=== PATIENT | male | born 1960 | race Two or more races ===

== ENCOUNTER 2018-12-04 12:46 | Emergency (ER) | payer OTHER ==
[~2018-12-04] VITALS: Ht 172.7 cm; Wt 70.8 kg
--- NOTE | 2018-12-04 14:16 | NUR ---
BIB COUSIN C/O FACIAL PAIN S/P FALL FROM SCOOTER, -KO. PT AAOX4, VSS. DENIES CP, SOB, DIZZINESS, N/V AT THIS TIME. PT SEEN & EVAL'D BY CITLALY GRIFFIN & WILL CONT TO MONITOR.
[2018-12-04] MEDS ORDERED: HYDROCODONE/APAP 5/325MG 1 EACH TABLET PO ONE (14:30)
[2018-12-04] MEDS ORDERED: TDAP [DIPH/PERTUSSIS/TET] 0.5 ML VIAL IM ONE ×2 (14:30→15:01)
--- NOTE | 2018-12-04 14:44 | NUR ---
PT TO RADIOLOGY DEPT VIA NITESH.
[2018-12-04] MEDS ORDERED: HYDROCODONE/APAP 5/325MG 1 EACH TABLET ONE (15:01)
[2018-12-04 16:23] VITALS: BP 138/84
--- NOTE | 2018-12-04 16:24 | NUR ---
Patient discharged to home in stable condition. Written and verbal after care instructions given. Patient verbalizes understanding of instruction.
== END 2018-12-04 16:25 | disposition home or self-care (01) ==
LOC: ER 12:51
DX: S01.512A Laceration without foreign body of oral cavity, initial encounter (principal); S01.511A Laceration without foreign body of lip, initial encounter; S63.592A Other specified sprain of left wrist, initial encounter; S09.8XXA Other specified injuries of head, initial encounter; F41.9 Anxiety disorder, unspecified; W05.1XXA Fall from non-moving nonmotorized scooter, initial encounter; Y93.89 Activity, other specified; Y92.89 Other specified places as the place of occurrence of the external cause; Y99.8 Other external cause status
CPT/HCPCS: 70486-TC; 73110; 90715

== ENCOUNTER 2020-11-07 15:53 | Emergency (ER) | payer OTHER ==
[~2020-11-07] VITALS: Ht 172.7 cm; Wt 79.4 kg
[2020-11-07 16:06] VITALS: BP 141/68
[2020-11-07] MEDS ORDERED: FLUORESCEIN SODIUM OPHTH 1 EA STRIP ONE (16:17)
[2020-11-07] MEDS ORDERED: predniSONE 20 MG TABLET PO ONE (16:30)
[2020-11-07] MEDS ORDERED: cetrizine 10 MG TABLET PO ONE (16:30)
[2020-11-07] MEDS ORDERED: predniSONE 10 MG TABLET ONE (16:31)
[2020-11-07] MEDS ORDERED: cetrizine 10 MG TABLET ONE (16:31)
[2020-11-07] MEDS ORDERED: IBUP-1955 PO (16:33)
[2020-11-07] MEDS ORDERED: PRED20TA PO (16:33)
[2020-11-07] MEDS ORDERED: CETI-90 PO (16:33)
[2020-11-07] MEDS ORDERED: ERYT3.5O9 LEFTEYE (16:33)
== END 2020-11-07 16:57 | disposition home or self-care (01) ==
LOC: ER 15:55
DX: T63.441A Toxic effect of venom of bees, accidental (unintentional), initial encounter (principal); H57.89 Other specified disorders of eye and adnexa; F41.9 Anxiety disorder, unspecified; Z79.899 Other long term (current) drug therapy; Y92.89 Other specified places as the place of occurrence of the external cause
CPT/HCPCS: 99283; J7512 ×2